=== PATIENT | female | born 1995 | race Caucasian/White ===

== ENCOUNTER 2016-09-10 20:22 | Emergency (ER) | payer BC ==
[2016-09-10 22:02] VITALS: BP 123/64
--- NOTE | 2016-09-10 22:33 | UC ---
Respiratory Complaint HPI - HPI Summary HPI Summary: cough, hoarse voice x approx a week, started getting better. Today started feeling worse, vomited, dry cough continues, bad frontal headaches, worse on the right, and watery stool. No definite fever, but tonight had chills. - History of Current Complaint Chief Complaint: UCGeneralIllness Stated Complaint: COUGH,VOMITING Time Seen by Provider: 09/10/16 22:32 Hx Obtained From: Patient Hx Last Menstrual Period: 08/17/16 Onset/Duration: Gradual Onset, Lasting Days, Still Present, Worse Since - yest Timing: Constant Severity Initially: Moderate Severity Currently: Moderate Pain Intensity: 4 Pain Scale Used: 0-10 Numeric Character: Cough: Nonproductive Aggravating Factors: Nothing Alleviating Factors: OTC Meds - tried robitussin, Nothing Associated Signs And Symptoms: Positive: Chills, URI, Nasal Congestion, Hoarseness - Allergies/Home Medications Allergies/Adverse Reactions: Allergies Allergy/AdvReac Type Severity Reaction Status Date / Time Latex Allergy Rash Verified 09/10/16 22:02 Home Medications: Home Medications Dextromethorphan-Guaifenesin [Robitussin Cough & Chest 5-100 mg/5Ml] 10 ml PO Q4H PRN 09/10/16 [History Confirmed 09/10/16] PMH/Surg Hx/FS Hx/Imm Hx Previously Healthy: Yes - Surgical History Surgical History: None - Family History Known Family History: Positive: Cardiac Disease - maternal grandfather and grandmother Negative: Hypertension, Diabetes - Social History Occupation: Employed Part-time, Student Lives: Prison - roommates Alcohol Use: Weekly Alcohol Amount: 5 drinks on the weekend Substance Use Type: None Smoking Status (MU): Former Smoker When Did the Patient Quit Smoking/Using Tobacco: 2 YRS - Immunization History Most Recent Influenza Vaccination: [id number] Review of Systems Constitutional: Chills, Fatigue Skin: Negative ENT: Sore Throat Respiratory: Cough Cardiovascular: Negative Gastrointestinal: Vomiting - 4-5 today, Diarrhea Motor: Negative Neurovascular: Negative Musculoskeletal: Negative Neurological: Headache Psychological: Negative All Other Systems Reviewed And Are Negative: Yes Physical Exam Triage Information Reviewed: Yes Appearance: Well-Nourished, Ill-Appearing, Pain Distress Vital Signs: Initial Vital Signs Temp 99.1 F 09/10/16 21:57 Pulse 88 09/10/16 21:57 Resp 12 09/10/16 21:57 BP 123/64 09/10/16 21:57 Pulse Ox 100 09/10/16 21:57 Vital Signs Reviewed: Yes Eyes: Positive: Conjunctiva Clear ENT: Positive: Hearing grossly normal, Pharyngeal erythema, TMs normal, Tonsillar swelling, Muffled/hoarse voice. Negative: Tonsillar exudate Neck: Positive: Supple, Nontender, No Lymphadenopathy Respiratory: Positive: Lungs clear, Normal breath sounds, No respiratory distress, No accessory muscle use, Other: - frequent paroxsyms of dry cough Cardiovascular: Positive: RRR, No Murmur, Pulses Normal, Brisk Capillary Refill Abdomen Description: Positive: Nontender, No Organomegaly, Soft. Negative: CVA Tenderness (R), CVA Tenderness (L), Distended, Guarding, McBurney's Point Tenderness, Peritoneal Signs Bowel Sounds: Positive: Present Musculoskeletal: Positive: Strength Intact, ROM Intact Neurological: Positive: Alert, Muscle Tone Normal Psychological Exam: Normal Skin Exam: Normal UC Diagnostic Evaluation - Laboratory O2 Sat by Pulse Oximetry: 100 Respiratory Course/Dx - Course Course Of Treatment: rapid A neg. influenza A and B neg - Differential Dx/Diagnosis Differential Diagnosis/HQI/PQRI: Asthma, Bronchitis, Influenza, Sinusitis Provider Diagnoses: acute cough. diarrhea Discharge - Discharge Plan Condition: Stable Disposition: HOME Prescriptions: Albuterol HFA INHALER* [Ventolin HFA Inhaler*] 1 puff INH Q4H PRN #1 mdi PRN Reason: Cough Benzonatate CAP* [Tessalon 100 MG CAP*] 100 mg PO TID PRN #20 cap PRN Reason: Cough Ondansetron ODT TAB* [Zofran 4 MG Odt TAB*] 4 mg PO Q6H PRN #10 tab.odt PRN Reason: Nausea guaiFENesin/CODIEN 100MG-10MG* [Robitussin AC 100Mg-10Mg*] 5 ml PO Q4H PRN #100 ml MDD 5ml PRN Reason: Cough predniSONE TAB* [Deltasone TAB*] 40 mg PO DAILY #10 tab Patient Education Materials: Bronchospasm (ED), Acute Cough (ED) Forms: *School Release Referrals: Non Staff,Doctor [Primary Care Provider] -
[2016-09-10] MEDS ORDERED: Benzonatate CAP* 100 MG PO ONE (22:53)
[2016-09-10] MEDS ORDERED: HYDROcodone/ACETAMIN 5-325 MG* 1 TAB PO ONE (23:11)
== END 2016-09-10 23:33 | disposition home or self-care (01) ==
LOC: UCCORT 20:22
DX: R05 Cough (principal); R19.7 Diarrhea, unspecified; Z87.891 Personal history of nicotine dependence
CPT/HCPCS: 87502; 87651; 99212; A9270-GY; G0463

== ENCOUNTER 2017-05-08 09:41 | Emergency (ER) | payer BC ==
[2017-05-08 09:50] VITALS: BP 109/71
[2017-05-08] MEDS ORDERED: Ibuprofen TAB* 600 MG PO ONE (10:11)
--- NOTE | 2017-05-08 10:19 | UC ---
Throat Pain/Nasal Angel HPI - HPI Summary HPI Summary: Sore throat, congestion, cough and fever for about 4 days. She is healthy. Nothing is helping. Swallowing makes pain worse. LMP 1mo ago but she denies possibility of being . - History of Current Complaint Chief Complaint: UCRespiratory Stated Complaint: COUGH,SWOLLEN TONSILS Time Seen by Provider: 05/08/17 10:05 Hx Obtained From: Patient Hx Last Menstrual Period: 03/31/17 Onset/Duration: Gradual Onset, Lasting Days Severity: Moderate Cough: Productive Associated Signs & Symptoms: Positive: Dysphagia, Nasal Discharge, Fever. Negative: Wheezing, Hoarseness, Sinus Discomfort, Vomiting, Rash - Allergies/Home Medications Allergies/Adverse Reactions: Allergies Allergy/AdvReac Type Severity Reaction Status Date / Time Latex Allergy Rash Verified 05/08/17 09:46 Home Medications: Home Medications Diphenhydramine HCl (Sleep) [Zzzquil] 50 mg PO Q6H PRN 05/08/17 [History Confirmed 05/08/17] PMH/Surg Hx/FS Hx/Imm Hx Previously Healthy: Yes - Surgical History Surgical History: None - Family History Known Family History: Positive: Cardiac Disease - maternal grandfather and grandmother Negative: Hypertension, Diabetes - Social History Occupation: Student Alcohol Use: Weekly Alcohol Amount: 5 drinks on the weekend Substance Use Type: None Smoking Status (MU): Former Smoker When Did the Patient Quit Smoking/Using Tobacco: ~2014 - Immunization History Most Recent Influenza Vaccination: February 2017 Review of Systems ENT: Sore Throat, Nasal Discharge, Sinus Congestion Respiratory: Cough All Other Systems Reviewed And Are Negative: Yes Physical Exam Triage Information Reviewed: Yes Appearance: Well-Appearing, No Pain Distress, Well-Nourished Vital Signs: Initial Vital Signs Temp 98.8 F 05/08/17 09:45 Pulse 118 05/08/17 09:45 Resp 16 05/08/17 09:45 BP 109/71 05/08/17 09:45 Pulse Ox 100 05/08/17 09:45 Vital Signs Reviewed: Yes Eye Exam: Normal Eyes: Positive: Conjunctiva Clear ENT: Positive: Pharyngeal erythema, Nasal congestion, TMs normal, Tonsillar exudate, Uvula midline. Negative: Nasal drainage, Tonsillar swelling, Trismus, Muffled voice, Hoarse voice, Sinus tenderness Neck: Positive: Supple, Nontender, No Lymphadenopathy Respiratory: Positive: Lungs clear, Normal breath sounds, No respiratory distress, No accessory muscle use. Negative: Respiratory distress, Decreased breath sounds, Accessory muscle use, Crackles, Rhonchi, Stridor Cardiovascular: Positive: RRR, No Murmur, Pulses Normal Abdomen Description: Positive: Nontender, No Organomegaly. Negative: Distended , Guarding Musculoskeletal: Positive: Strength Intact, ROM Intact, No Edema Neurological: Positive: Alert, Muscle Tone Normal, Fatigued Skin: Positive: rashes Throat Pain/Nasal Course/Dx - Course Assessment/Plan: supportive care described. - Differential Dx/Diagnosis Provider Diagnoses: URI. Sore throat. Discharge - Discharge Plan Condition: Good Disposition: HOME Patient Education Materials: Upper Respiratory Infection (ED) Referrals: No Primary Care Phys,NOPCP [Primary Care Provider] -
== END 2017-05-08 10:53 | disposition home or self-care (01) ==
LOC: UCCORT 09:41
DX: J02.9 Acute pharyngitis, unspecified (principal)
CPT/HCPCS: 87651; 99212; A9270-GY; G0463

== ENCOUNTER 2017-06-27 15:54 | Emergency (ER) | payer BC ==
[2017-06-27 17:15] VITALS: BP 116/69
--- NOTE | 2017-06-27 17:48 | UC ---
Throat Pain/Nasal Angel HPI - HPI Summary HPI Summary: 22 y/o female presents to the urgent care c/o sore throat with SIMPSON and neck stiffness that started 5 days ago. SIMPSON and neck pain and stiffness resolved, but sore throat has worsen. Pain is 6/10 with swallowing, Pt denies fever, SOB, cough, chest pain, abdominal pain, N/V/D. She has not taking anything to alleviate symptoms. - History of Current Complaint Chief Complaint: UCGeneralIllness Stated Complaint: SORE THROAT/SWOLLEN TONSILS Time Seen by Provider: 06/27/17 17:47 Hx Obtained From: Patient Hx Last Menstrual Period: 06/11/17 Onset/Duration: Gradual Onset, Lasting Days - 5 days, Still Present, Worse Since - 2 days Severity: Moderate Pain Intensity: 6 Pain Scale Used: 0-10 Numeric Cough: None Associated Signs & Symptoms: Positive: Dysphagia. Negative: Nasal Discharge, Fever - Epiglottits Risk Factors Epiglottis Risk Factors: Negative - Allergies/Home Medications Allergies/Adverse Reactions: Allergies Allergy/AdvReac Type Severity Reaction Status Date / Time Latex Allergy Rash Verified 06/27/17 17:15 PMH/Surg Hx/FS Hx/Imm Hx Previously Healthy: Yes - Pt denies PMHX - Surgical History Surgical History: None - Family History Known Family History: Positive: Cardiac Disease - maternal grandfather and grandmother, Hypertension Negative: Diabetes - Social History Occupation: Student Lives: With Family Alcohol Use: Weekly Alcohol Amount: 5 drinks on the weekend Substance Use Type: None Smoking Status (MU): Former Smoker When Did the Patient Quit Smoking/Using Tobacco: ~2014 - Immunization History Most Recent Influenza Vaccination: February 2017 Review of Systems Constitutional: Negative Skin: Negative Eyes: Negative ENT: Sore Throat Respiratory: Negative Cardiovascular: Negative Gastrointestinal: Negative Genitourinary: Negative Motor: Negative Neurovascular: Negative Musculoskeletal: Other: - neck stiffness which has resolved today Neurological: Headache Psychological: Negative Is Patient Immunocompromised?: No All Other Systems Reviewed And Are Negative: Yes Physical Exam Triage Information Reviewed: Yes Vital Signs: Initial Vital Signs Temp 99.5 F 06/27/17 17:08 Pulse 78 06/27/17 17:08 Resp 12 06/27/17 17:08 BP 116/69 06/27/17 17:08 Pulse Ox 100 06/27/17 17:08 - Additional Comments VITAL SIGNS: Reviewed. GENERAL: Patient is a well developed and nourished female who is sitting comfortable in the examining table. Patient is not in any acute respiratory distress. HEAD AND FACE: No signs of trauma. No ecchymosis, hematomas or skull depressions. No sinus tenderness. EYES: PERRLA, EOMI x 2, No injected conjunctiva, no nystagmus. No photophobia. EARS: Hearing grossly intact. Ear canals and tympanic membranes are within normal limits. MOUTH: Positive pharynx with erythema, mild exudates, mild palatal petechiae. Moderate B/L tonsillar enlargement with exudate. Uvula in midline. NECK: Supple, trachea is midline, Positive anterior cervical lymphadenopathy, no JVD, no carotid bruit, no c-spine tenderness, neck with full ROM. No meningeal signs, no Kernig's or brudzinskis signs. CHEST: Symmetric, no tenderness at palpation LUNGS: Clear to auscultation bilaterally. No wheezing or crackles. CVS: Regular rate and rhythm, S1 and S2 present, no murmurs or gallops appreciated. ABDOMEN: Soft, non-tender. No signs of distention. No rebound no guarding, and no masses palpated. Bowel sounds are normal. EXTREMITIES: FROM in all major joints, no edema, no cyanosis or clubbing. NEURO: Alert and oriented x 3. No acute neurological deficits. Speech is normal and follows commands. SKIN: Dry and warm Throat Pain/Nasal Course/Dx - Course Course Of Treatment: 22 y/o female presents to the urgent care c/o sore throat with SIMPSON and neck stiffness that started 5 days ago. SIMPSON and neck pain and stiffness resolved, but sore throat has worsen. Pain is 6/10 with swallowing, Pt denies fever, SOB, cough, chest pain, abdominal pain, N/V/D. She has not taking anything to alleviate symptoms. Hx obtained. Pt with pharyngitis and tonsillitis on examination. Rapid strep ordered, result: negative. Viral pharyngitis.Pt Rx ibuprofen PO and Prednisone PO to alleviate symptoms of pain and swelling. Advised on hand washing to avoid spreading. Pt advised to rest, eat well and avoid strenuous exercise. If symptoms do not improve or worsen advised to return to the urgent care or f/u with her PCP for further evaluation and treatment. Pt understood and agreed - Differential Dx/Diagnosis Differential Diagnosis/HQI/PQRI: Influenza, Laryngitis, Otitis Media, Pharyngitis, Sinusitis, URI, Other - torticollis Provider Diagnoses: 1- Viral pharyngitis. 1- B/L Tonsillitis Discharge - Discharge Plan Condition: Stable Disposition: HOME Prescriptions: Ibuprofen TAB* [Motrin TAB* 800 MG] 800 mg PO Q6H PRN #20 tab PRN Reason: Pain predniSONE TAB* [Deltasone TAB*] 20 mg PO DAILY #11 tab Patient Education Materials: Pharyngitis (ED), Tonsillitis (ED) Referrals: [facility] [place] [place] [facility] [Outside] - 3 Days Additional Instructions: 1-Please take ibuprofen PO q6-8hrs prn as instructed after meals to alleviate pain and swelling. Increase fluid intake, eat well, rest and avoid strenuous exercise 2- Take Prednisone PO taper dose as directed to decrease swelling 1-If symptoms do not improve or worsen please return to the urgent care or f/u with your PCP for further evaluation and treatment.
== END 2017-06-27 18:37 | disposition home or self-care (01) ==
LOC: UCCORT 15:54
DX: J02.9 Acute pharyngitis, unspecified (principal); Z91.040 Latex allergy status; Z87.891 Personal history of nicotine dependence
CPT/HCPCS: 87651; 99212; G0463